=== PATIENT | female | born 1950 | race Caucasian/White ===

== ENCOUNTER 2016-08-09 07:15 | Day surgery (SDC) | payer OTHER ==
[~2016-08-09 07:15] MED LIST: Lactated Ringers 1,000 ML IV SCH; Lidocaine 1%/Sod Bicarbonate in NS 8.4% 1 ML Syringe PRN; Sodium Chloride 0.9% 10 ML Syringe FLUSH PRN
--- NOTE | 2016-08-09 07:49 | PCM.PREANE ---
Preanesthetic Assessment - Anesthesia/Transfusion/Family Hx Anesthesia History: Prior Anesthesia Without Reaction Family History of Anesthesia Reaction: No Transfusion History: No Prior Transfusion(s) Intubation History: Unknown - Review of Systems General: No Symptoms Pulmonary: No Symptoms (quit smoking 1996.) Cardiovascular: No Symptoms Gastrointestinal: Diarrhea (has resolved for past 5 days.) Neurological: No Symptoms Other: Reports: None (off/on lower back pain with lower back surgery fusion noted in 2012) - Physical Assessment NPO Status Date: 08/09/16 NPO Status Time: 03:00 Pulse: 71 O2 Sat by Pulse Oximetry: 96 Respiratory Rate: 16 Blood Pressure: 141/60 Temperature: 36.2 C Height: 1.65 m Weight: 81.647 kg ASA Class: 1 Mental Status: Alert & Oriented x3 Airway Class: Mallampati = 2 Dentition: Reports: Normal Dentition, [place](s), Caries Thyro-Mental Finger Breadths: 3 Mouth Opening Finger Breadths: 3 ROM/Head Extension: Full Lungs: Clear to auscultation, Normal respiratory effort Cardiovascular: Regular Rate, Regular Rhythm - Lab Values: All labs reviewed from June 2016 and within normal limits. - Allergies Allergies/Adverse Reactions: Allergies Allergy/AdvReac Type Severity Reaction Status Date / Time No Known Allergies Allergy Verified 08/06/16 09:46 - Anesthesia Plan Pre-Op Medication Ordered: None - Acknowledgements Anesthesia Type Planned: MAC Pt an Appropriate Candidate for the Planned Anesthesia: Yes Alternatives and Risks of Anesthesia Discussed w Pt/Guardian: Yes Pt/Guardian Understands and Agrees with Anesthesia Plan: Yes PreAnesthesia Questionnaire HEENT History: Reports: None Cardiovascular History: Reports: None Respiratory History: Reports: None Gastrointestinal History: Reports: Chronic Diarrhea Genitourinary History: Reports: None 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: Musculoskeletal History: Reports: None Neurological History: Reports: None Psychiatric History: Reports: None Endocrine/Metabolic History: Reports: None Hematologic History: Reports: None Immunologic History: Reports: None Oncologic (Cancer) History: Reports: None Dermatologic History: Reports: None - Infectious Disease History Infectious Disease History: Reports: None - Past Surgical History Head Surgeries/Procedures: Reports: None HEENT Surgical History: Reports: Adenoidectomy, Tonsillectomy Cardiovascular Surgical History: Reports: Other (See Below) Other Cardiovascular Surgeries/Procedures: Ligation and division and complete stripping, long and short saphenous veins Respiratory Surgical History: Reports: None GI Surgical History: Reports: Appendectomy, Colonoscopy Female Surgical History: Reports: Breast Biopsy, Tubal Ligation Endocrine Surgical History: Reports: None Neurological Surgical History: Reports: None Musculoskeletal Surgical History: Reports: None Oncologic Surgical History: Reports: None Dermatological Surgical History: Reports: None - SUBSTANCE USE Smoking Status *Q: Former Smoker Second Hand Smoke Exposure: No Recreational Drug Use History: No - HOME MEDS Home Medications: Home Meds Aspirin [Halfprin] 81 mg PO DAILY 08/06/16 [History] Biotin 5 mg PO DAILY 08/06/16 [History] Cranberry Conc/Ascorbic Acid [Cranberry Plus Vitamin C Sftgl] 1 each PO DAILY [History] Estradiol [Estrace Vaginal] 1 applic VAG SUWE 08/06/16 [History] L.acidoph,Paracasei, B.lactis [Probiotic] 1 each PO DAILY 08/06/16 [History] Multivitamin [Multivitamins] 1 each PO DAILY 08/06/16 [History] - CURRENT (IN HOUSE) MEDS Current Meds: Current Medications Lactated Ringer's (Ringers, Lactated) 1,000 mls @ 125 mls/hr IV ASDIRECTED BETH Stop: 08/09/16 23:00 Lidocaine/Sodium Bicarbonate (Buffered Lidocaine 1% In Ns 8.4%) 0.25 ml .XX ONETIME PRN PRN Reason: Prior to IV Start Stop: 08/09/16 18:00 Sodium Chloride (Saline Flush) 10 ml FLUSH ASDIRECTED PRN PRN Reason: Keep Vein Open Stop: 08/09/16 18:00
[2016-08-09] MEDS ORDERED: Midazolam 1 MG/ML 2 ML SDV ONE (08:02)
[2016-08-09] MEDS ORDERED: fentaNYL 100 MCG/2 ML SDV ONE (08:02)
[2016-08-09] MEDS ORDERED: Lidocaine 1% 4 ML ONE (08:02)
[2016-08-09] MEDS ORDERED: Propofol 200 MG/20 ML SDV ONE (08:02)
--- NOTE | 2016-08-09 09:08 | PCM.OPNOTE ---
- General Post-Op/Procedure Note Date of Surgery/Procedure: 08/09/16 Operative Procedure(s): colonoscopy with bx and collection of stool Findings: sigmoid diverticulosis Pre Op Diagnosis: chronic diarrhea Post-Op Diagnosis: Same Anesthesia Technique: MAC Primary Surgeon: Duke Bey EBL in mLs: 0 Complications: None Condition: Good
--- NOTE | 2016-08-09 09:08 | PCM48HPAN ---
Post Anesthesia Note - EVALUATION WITHIN 48HRS OF ANESTHETIC Vital Signs in Normal Range: Yes Patient Participated in Evaluation: Yes Respiratory Function Stable: Yes Airway Patent: Yes Cardiovascular Function Stable: Yes Hydration Status Stable: Yes Pain Control Satisfactory: Yes Nausea and Vomiting Control Satisfactory: Yes Mental Status Recovered: Yes
[2016-08-09 09:10] VITALS: BP 110/53
--- NOTE | 2016-08-10 09:43 | OR ---
DATE OF OPERATION: 08/09/2016 SURGEON: Duke Bey MD PREOPERATIVE DIAGNOSIS: Chronic diarrhea. POSTOPERATIVE DIAGNOSIS: Chronic diarrhea. OPERATION PERFORMED: Colonoscopy to cecum with cannulation of the ileum, collection of stool for analysis, and random biopsies of the transverse colon, sigmoid colon, and rectum. FINDINGS: Moderate sigmoid diverticulosis. There are no angiodysplasias, neoplasias, large tumor masses, ulcerations, or hemorrhoids. The ileum was clear of any acute pathology. ANESTHESIA: Procedure done under IV sedation. DESCRIPTION OF PROCEDURE: The patient was taken to the GI room, placed in a supine position, connected to monitoring equipment, given IV sedation, and placed in left lateral position. The perianal area was inspected and was normal. Rectal exam showed good sphincter tone. A Video Olympus colonoscope was introduced into the rectum and threaded up without problem to the cecum, where the appendicular orifice was clearly noted. Prep was excellent throughout the colon. [place] Cleansing score grade A. The scope was cannulated and the ileum was normal. The scope was then slowly withdrawn showing the cecum, ascending colon, transverse colon, descending colon, sigmoid colon, and rectum collecting stool in the process. A random biopsy was taken of the transverse colon, the sigmoid colon, and the rectum. Stool was sent for analysis and the biopsies were sent in separate labeled containers to pathology. The patient tolerated the procedure, sent to recovery room in a stable condition, and will be followed up in the clinic. ESTIMATED BLOOD LOSS: MMODAL /[id number]
== END 2016-08-09 09:38 | disposition home or self-care (01) ==
LOC: JD.SDS 07:15
PROVIDERS: ATTEND Surgery
DX: K52.9 Noninfective gastroenteritis and colitis, unspecified (principal); K57.30 Diverticulosis of large intestine without perforation or abscess without bleeding; Z79.82 Long term (current) use of aspirin; Z87.891 Personal history of nicotine dependence
CPT/HCPCS: 45380; 87046; 87328; 87329; 87493; 88305; 89055; J2250; J3010; J7120; 87427; J2704

== ENCOUNTER 2018-07-05 06:11 | Day surgery (SDC) | payer MEDICARE, BC ==
[~2018-07-05 06:11] MED LIST changes: +Lidocaine 1%/Sod Bicarbonate in NS 8.4% 1 ML Syringe IDERM PRN; -Lidocaine 1%/Sod Bicarbonate in NS 8.4% 1 ML Syringe PRN
[2018-07-05] MEDS ORDERED: Lidocaine 1% 30 ML SDV ONE (06:23)
[2018-07-05] MEDS ORDERED: Triamcinolone Acetonide 40 MG/ML 1 ML MDV ONE (06:24)
--- NOTE | 2018-07-05 06:45 | PCM.PREANE ---
Preanesthetic Assessment - Anesthesia/Transfusion/Family Hx Anesthesia History: Prior Anesthesia Without Reaction Type of Anesthesia Reaction: Excessive Nausea/Vomiting Family History of Anesthesia Reaction: No Transfusion History: No Prior Transfusion(s) Intubation History: Unknown - Review of Systems General: No Symptoms Pulmonary: No Symptoms (Quit smoking in 2001) Cardiovascular: No Symptoms Gastrointestinal: No Symptoms Neurological: No Symptoms (Chronic lower back pain: / surgery in 2013,) Other: Reports: Easy Bleeding, Easy Bruising, Anxiety - Physical Assessment NPO Status Date: 07/04/18 NPO Status Time: 21:30 Pulse: 69 O2 Sat by Pulse Oximetry: 93 Respiratory Rate: 16 Blood Pressure: 133/59 Temperature: 36.2 C Height: 1.65 m Weight: 83.461 kg ASA Class: 2 Mental Status: Alert & Oriented x3 Airway Class: Mallampati = 2 Dentition: Reports: Normal Dentition, [place]ies Thyro-Mental Finger Breadths: 3 Mouth Opening Finger Breadths: 3 Lungs: Clear to Auscultation, Normal Respiratory Effort Cardiovascular: Regular Rate, Regular Rhythm, No Murmurs - Lab Values: Laboratory Last Values MRSA (PCR) Negative 06/28/18 10:48 - Imaging/EKG Impressions: EKG: NSR rate= 67 - Allergies Allergies/Adverse Reactions: Allergies Allergy/AdvReac Type Severity Reaction Status Date / Time No Known Allergies Allergy Verified 07/04/18 12:11 - Anesthesia Plan Pre-Op Medication Ordered: None - Acknowledgements Anesthesia Type Planned: MAC Pt an Appropriate Candidate for the Planned Anesthesia: Yes Alternatives and Risks of Anesthesia Discussed w Pt/Guardian: Yes Pt/Guardian Understands and Agrees with Anesthesia Plan: Yes PreAnesthesia Questionnaire HEENT History: Reports: None Cardiovascular History: Reports: High Cholesterol Respiratory History: Reports: PE Gastrointestinal History: Reports: Chronic Diarrhea, Irritable Bowel Syndrome Genitourinary History: Reports: None, Urinary Incontinence, UTI, Recurrent, Other (See Below) Other Genitourinary History: cystic hematuria, dysuria 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: , Other (See Below) Other OB/BYN History: vaginal atrophy, hot flashes, , breast lumpectomy, tubal Musculoskeletal History: Reports: None, Back Pain, Chronic Neurological History: Reports: None Psychiatric History: Reports: Anxiety Endocrine/Metabolic History: Reports: None, Other (See Below) Other Endocrine/Metabolic History: hair loss Hematologic History: Reports: None Immunologic History: Reports: None Oncologic (Cancer) History: Reports: None Dermatologic History: Reports: Other (See Below) Other Dermatologic History: hair loss - Infectious Disease History Infectious Disease History: Reports: None - Past Surgical History Head Surgeries/Procedures: Reports: None HEENT Surgical History: Reports: Adenoidectomy, Tonsillectomy Cardiovascular Surgical History: Reports: Other (See Below) Other Cardiovascular Surgeries/Procedures: Ligation and division and complete stripping, long and short saphenous veins Respiratory Surgical History: Reports: None GI Surgical History: Reports: Appendectomy, Colonoscopy Female Surgical History: Reports: Breast Biopsy, Tubal Ligation Male Surgical History: Reports: None Endocrine Surgical History: Reports: None Neurological Surgical History: Reports: Other (See Below) Other Neurological Surgeries/Procedures: back surgery with hardware Musculoskeletal Surgical History: Reports: None Oncologic Surgical History: Reports: None Dermatological Surgical History: Reports: None - SUBSTANCE USE Smoking Status *Q: Former Smoker Recreational Drug Use History: No - HOME MEDS Home Medications: Home Meds Cranberry Conc/Ascorbic Acid [Cranberry Plus Vitamin C Sftgl] 1 each PO DAILY [History] Estradiol [Estrace 0.01% Vaginal Crm] 1 applic VAG SUWE 08/06/16 [History] L.acidoph,Paracasei, B.lactis [Probiotic] 1 each PO DAILY 08/06/16 [History] Colestipol [Colestipol HCl] 2 mg PO BEDTIME 11/23/17 [History] Biotin 1 mg PO DAILY 07/04/18 [History] Escitalopram Oxalate [Lexapro] 20 mg PO DAILY 07/04/18 [History] LORazepam 0.5 - 1 mg PO BID PRN 07/04/18 [History] - CURRENT (IN HOUSE) MEDS Current Meds: Current Medications Lactated Ringer's (Ringers, Lactated) 1,000 mls @ 125 mls/hr IV ASDIRECTED BETH Stop: 07/05/18 23:00 Lidocaine/Sodium Bicarbonate (Buffered Lidocaine 1% In Ns 8.4%) 0.25 ml IDERM ONETIME PRN PRN Reason: Prior to IV Start Stop: 07/05/18 18:00 Sodium Chloride (Saline Flush) 10 ml FLUSH ASDIRECTED PRN PRN Reason: Keep Vein Open Stop: 07/05/18 18:00 Discontinued Medications Bupivacaine HCl (Marcaine 0.25%) Confirm Administered Dose 30 ml .ROUTE .STK- MED ONE Stop: 07/05/18 06:25 Lidocaine HCl (Xylocaine-Mpf 1%) Confirm Administered Dose 30 ml .ROUTE .STK- MED ONE Stop: 07/05/18 06:24 Triamcinolone Acetonide (Kenalog-40) Confirm Administered Dose 40 mg .ROUTE .STK -MED ONE Stop: 07/05/18 06:25
[2018-07-05] MEDS ORDERED: Propofol 200 MG/20 ML SDV ONE (07:02)
[2018-07-05] MEDS ORDERED: Ondansetron 4 MG/2 ML SDV ONE (07:02)
[2018-07-05] MEDS ORDERED: Lidocaine 1% 6 ML ONE (07:02)
[2018-07-05] MEDS ORDERED: Midazolam 1 MG/ML 2 ML SDV ONE (07:03)
[2018-07-05] MEDS ORDERED: fentaNYL 100 MCG/2 ML SDV ONE (07:03)
[2018-07-05] MEDS ORDERED: Ondansetron 4 MG/2 ML SDV IVPUSH PRN (07:20)
[2018-07-05] MEDS ORDERED: HYDROmorphone 0.5 MG/0.5 ML Syringe IVPUSH PRN (07:20)
[2018-07-05] MEDS ORDERED: diphenhydrAMINE 50 MG/ML SDV IVPUSH PRN (07:20)
[2018-07-05] MEDS: Bupivacaine 0.25% 30 ML SDV ONE ×2 (07:23→07:33)
[2018-07-05 08:46] VITALS: BP 107/59
--- NOTE | 2018-07-05 14:44 | PCM.OPNOTE ---
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
--- NOTE | 2018-07-05 15:04 | OR ---
DATE OF OPERATION: 07/05/2018 SURGEON: Manuel Garcia MD OPERATION PERFORMED: Left carpal tunnel release with right index finger MCP joint injection. 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 ANESTHESIA: Local MAC. ANESTHESIA PROVIDER: Jillian Walls CRNA. SIZER HAND: Pavithra Lau PA-C. ESTIMATED BLOOD LOSS: Less than 5 mL. COMPLICATIONS: None. CONDITION: Stable. DESCRIPTION OF PROCEDURE: The patient was identified in the preop holding area. Proper site was marked and identified by the surgeon. The patient was taken back to the operating theater where after adequate anesthesia, the patient's left upper extremity was sterilely prepped and draped in the usual sterile fashion. OR time-out was performed. The patient did not receive antibiotics and it is not indicated for soft tissue hand procedure. At this time, the left upper extremity was exsanguinated and an Esmarch was used as a tourniquet on the forearm. At this time, using 1% lidocaine without epinephrine and 0.25% Marcaine without epinephrine, the palmar cutaneous branch of the median nerve was anesthetized and then the incisional site was anesthetized using Barnes cardinal line and ulnar border of the fourth digit as reference. Once this had set up, an incision was made. Blunt dissection was taken down to the palmar cutaneous fascia. Palmar cutaneous fascia was incised with a [place] blade. At this time, the transverse carpal ligament was identified. A small rent was made in the transverse carpal ligament with a [place] blade under direct visualization. Resection of the transverse carpal ligament was done distally using tenotomy scissors making sure to stop short of the palmar arch. At this time, attention was turned proximally after it was found to be adequately released. Using the tenotomy scissors keeping the tips ulnar to protect the palmar cutaneous branch of the median nerve, the superficial forearm fascia as well as the transverse carpal ligament were resected proximally. It was found to be adequate release both proximally and distally. At this time, adequate saline was irrigated through the wound. 4-0 nylon sutures were used closure of the skin. The patient was placed in a sterile soft dressing and sent to PACU in stable condition. After this was completed, under sterile technique, 0.5 mL 40 mg Kenalog and 0.5 mL of 0.25% Marcaine were injected to the right index finger MCP joint. The patient tolerated both procedures well. LOTUS /[id number]
== END 2018-07-05 08:45 | disposition home or self-care (01) ==
LOC: JD.SDS 06:11
PROVIDERS: ATTEND Orthopaedic Surgery
DX: G56.02 Carpal tunnel syndrome, left upper limb (principal); M19.041 Primary osteoarthritis, right hand; F41.9 Anxiety disorder, unspecified; K58.9 Irritable bowel syndrome, unspecified; Z87.891 Personal history of nicotine dependence; Z79.899 Other long term (current) drug therapy
CPT/HCPCS: 20600; 64721; 87641; J2001; J2250; J2405; J2704; J3010; J3301; J3490; J7120; 01810

== ENCOUNTER → 2020-07-28 | Day surgery (SDC) | payer MEDICARE, BC ==
--- NOTE | 2020-07-07 10:26 | PCM.EKG ---
#1 Interpretation EKG Date: 07/07/20 Time: 08:43 Rhythm: NSR Rate (Beats/Min): 76 [place]: Normal P-Wave: Enlarged (Left atrial hypertrophy pattern) QRS: Other (Decreased voltage limb leads) ST-T: Other (Nonspecific T wave flattening V2) QT: Normal EKG Interpretation Comments: Borderline ECG
[~2020-07-28] MED LIST changes: +Acetaminophen 325 MG Tab PO SCH; +Bupivacaine 0.25% 10 ML SDV ONE; +Cyclobenzaprine 10 MG Tab PO PRN; +EPINEPHrine 1 MG/ML SDV ONE; +HYDROmorphone 0.5 MG/0.5 ML Syringe IVPUSH STA; +Ketorolac 30 MG/ML SDV ONE; +Lactated Ringers 1,000 ML ONE; +Lidocaine 1% 4 ML ONE; +Midazolam 1 MG/ML 2 ML SDV ONE; +Ondansetron 4 MG/2 ML SDV IVPUSH PRN; +Ondansetron 4 MG/2 ML SDV ONE; +Pregabalin 25 MG Cap PO SCH; +Propofol 200 MG/20 ML SDV ONE; +Ropivacaine 0.5% 5 MG/ML 30 ML SDV ONE; +ceFAZolin 1 GM Vial ONE; +diphenhydrAMINE 50 MG/ML SDV IVPUSH PRN; +ePHEDrine 50 MG/ML SDV IVPUSH PRN; +ePHEDrine 50 MG/ML SDV ONE; +fentaNYL 100 MCG/2 ML SDV ONE; +oxyCODONE 5 MG Tab PO PRN; +oxyCODONE ER 10 MG TAB.ER PO SCH
--- NOTE | 2020-07-28 08:13 | PCM.PREANE ---
Preanesthetic Assessment - Anesthesia/Transfusion/Family Hx Anesthesia History: Prior Anesthesia Reaction (MELVINA) Family History of Anesthesia Reaction: No Transfusion History: No Prior Transfusion(s) Intubation History: Unknown - Review of Systems General: No Symptoms Pulmonary: No Symptoms Cardiovascular: No Symptoms Gastrointestinal: No Symptoms Neurological: No Symptoms Other: Reports: None - Physical Assessment NPO Status Date: 07/27/20 NPO Status Time: 22:00 ASA Class: 2 Mental Status: Alert & Oriented x3 Airway Class: Mallampati = 2 Dentition: Reports: Normal Dentition Thyro-Mental Finger Breadths: 3 Mouth Opening Finger Breadths: 3 ROM/Head Extension: Full Lungs: Clear to Auscultation, Normal Respiratory Effort Cardiovascular: Regular Rate, Regular Rhythm - Lab Values: Laboratory Last Values MRSA (PCR) Cancelled 07/08/20 16:05 - Allergies Allergies/Adverse Reactions: Allergies Allergy/AdvReac Type Severity Reaction Status Date / Time No Known Allergies Allergy Verified 07/25/20 14:27 - Acknowledgements Anesthesia Type Planned: Spinal Pt an Appropriate Candidate for the Planned Anesthesia: Yes Alternatives and Risks of Anesthesia Discussed w Pt/Guardian: Yes Pt/Guardian Understands and Agrees with Anesthesia Plan: Yes PreAnesthesia Questionnaire HEENT History: Reports: None Cardiovascular History: Reports: High Cholesterol Respiratory History: Reports: PE Gastrointestinal History: Reports: Chronic Diarrhea, GERD, Irritable Bowel Syndrome Genitourinary History: Reports: Urinary Incontinence, UTI, Recurrent, Other (See Below) Other Genitourinary History: cystic hematuria, dysuria 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: , Other (See Below) Other OB/BYN History: vaginal atrophy, hot flashes, , breast lumpectomy, tubal Musculoskeletal History: Reports: None, Back Pain, Chronic Neurological History: Reports: None Psychiatric History: Reports: Anxiety Endocrine/Metabolic History: Reports: None Other Endocrine/Metabolic History: hair loss Hematologic History: Reports: None Immunologic History: Reports: None Oncologic (Cancer) History: Reports: None Dermatologic History: Reports: Other (See Below) Other Dermatologic History: hair loss - Infectious Disease History Infectious Disease History: Reports: None - Past Surgical History Head Surgeries/Procedures: Reports: None HEENT Surgical History: Reports: Adenoidectomy, Cataract Surgery, Tonsillectomy Cardiovascular Surgical History: Reports: Varicose, Other (See Below) Other Cardiovascular Surgeries/Procedures: Ligation and division and complete stripping, long and short saphenous veins Respiratory Surgical History: Reports: None GI Surgical History: Reports: Appendectomy, Colonoscopy Female Surgical History: Reports: Breast Biopsy, Tubal Ligation Male Surgical History: Reports: None Endocrine Surgical History: Reports: None Neurological Surgical History: Reports: Other (See Below) Other Neurological Surgeries/Procedures: back surgery with hardware Musculoskeletal Surgical History: Reports: None Oncologic Surgical History: Reports: None Dermatological Surgical History: Reports: None - SUBSTANCE USE Tobacco Use Status *Q: Former Tobacco User Recreational Drug Use History: No - HOME MEDS Home Medications: Home Meds Cranberry Conc/Ascorbic Acid [Cranberry Plus Vitamin C Sftgl] 1 each PO DAILY 08/06/16 [History] L.acidoph,Paracasei, B.lactis [Probiotic] 1 each PO DAILY 08/06/16 [History] estradioL [Estrace 0.01% Vaginal Crm] 1 applic VAG SUWE 08/06/16 [History] Colestipol [Colestipol HCl] 1 gm PO BEDTIME 11/23/17 [History] Escitalopram Oxalate [Lexapro] 20 mg PO DAILY 07/04/18 [History] Cholecalciferol (Vitamin D3) [Vitamin D3] 5,000 unit PO DAILY 07/25/20 [History] Cyclobenzaprine [Flexeril] 10 mg PO BID PRN #20 tab 07/28/20 [Rx] Rivaroxaban [Xarelto] 10 mg PO DAILY #40 tab 07/28/20 [Rx] oxyCODONE 5 - 10 mg PO Q4H PRN #40 tab 07/28/20 [Rx] - CURRENT (IN HOUSE) MEDS Current Meds: Current Medications Acetaminophen (Acetaminophen 325 Mg Tab) 975 mg PO ONETIME BETH Stop: 07/28/20 16:00 Morphine Sulfate 8 mg/Epinephrine HCl 0.3 mg/Cefuroxime Sodium 750 mg/Ketorolac Tromethamine 30 mg/Sodium Chloride 7.9 ml 0 mg .XX ASDIRECTED PRN PRN Reason: Pain Stop: 07/28/20 13:00 Lactated Ringer's (Ringers, Lactated) 1,000 mls @ 125 mls/hr IV ASDIRECTED BETH Stop: 07/28/20 23:00 Lidocaine/Sodium Bicarbonate (Lidocaine 1%/Sod Bicarbonate In Ns 8.4% 1 Ml Syringe) 0.25 ml IDERM ONETIME PRN PRN Reason: Prior to IV Start Stop: 07/28/20 18:00 Oxycodone HCl (Oxycodone Er 10 Mg Tab.Er) 10 mg PO ONETIME BETH Stop: 07/28/20 16:00 Pregabalin (Pregabalin 25 Mg Cap) 50 mg PO ONETIME BETH Stop: 07/28/20 16:00 Sodium Chloride (Sodium Chloride 0.9% 10 Ml Syringe) 10 ml FLUSH ASDIRECTED PRN PRN Reason: Keep Vein Open Stop: 07/28/20 18:00 Discontinued Medications Cefazolin Sodium (Cefazolin 1 Gm Vial) Confirm Administered Dose 2 gm .ROUTE .STK-MED ONE Stop: 07/28/20 07:13 Epinephrine HCl (Epinephrine 1 Mg/Ml Sdv) Confirm Administered Dose 1 mg .ROUTE .STK-MED ONE Stop: 07/28/20 07:29 Lidocaine HCl (Xylocaine-Mpf 1%) Confirm Administered Dose 4 mls @ as directed .ROUTE .STK-MED ONE Stop: 07/28/20 06:55 Midazolam HCl (Midazolam 1 Mg/Ml 2 Ml Sdv) Confirm Administered Dose 2 mg .ROUTE .STK-MED ONE Stop: 07/28/20 06:55 Propofol (Propofol 200 Mg/20 Ml Sdv) Confirm Administered Dose 200 mg .ROUTE .STK-MED ONE Stop: 07/28/20 06:55 Ropivacaine (Ropivacaine 0.5% 5 Mg/Ml 30 Ml Sdv) Confirm Administered Dose 30 ml .ROUTE .STK-MED ONE Stop: 07/28/20 07:29
[2020-07-28] MEDS: Morphine 8 MG, EPINEPHrine 0.3 MG, Cefuroxime 750 MG, Ketorolac 30 MG, Sodium Chloride ... PRN ×10 (10:55→11:28)
[2020-07-28] MEDS: Vancomycin 1 GM SDV ONE ×2 (10:56→11:34)
--- NOTE | 2020-07-28 11:59 | PCM.POSTAN ---
POST ANESTHESIA ASSESSMENT - MENTAL STATUS Mental Status: Alert, Oriented - VITAL SIGNS Vital Signs: Last Vital Signs Temp 36.6 C 07/28/20 08:05 Pulse 80 07/28/20 08:05 Resp 17 07/28/20 08:05 BP 125/56 L 07/28/20 08:05 Pulse Ox 98 07/28/20 08:05 - RESPIRATORY Respiratory Status: Respiratory Rate WNL, Airway Patent, O2 Saturation Stable - CARDIOVASCULAR CV Status: Pulse Rate WNL, Blood Pressure Stable - GASTROINTESTINAL GI Status: No Symptoms - PAIN Pain Score: 0 - POST OP HYDRATION Hydration Status: Adequate & Stable
--- NOTE | 2020-07-28 12:16 | PCM.SN.2 ---
- Free Text/Narrative Note: Right selective femoral nerve block at the adductor canal for post-procedure pain control under US guidance requested by Dr. Garcia. Date: 07/28/2020 Time Out: 1202 Start: 1203 End: 1206 Chart reviewed. Consent signed. Questions answered. Appropriate monitors applied. Time out performed. Right mid-shaft femur identified with ultrasound, scanning medially of femur, the femoral artery in the adductor canal visualized, and the femoral nerve located laterally to the artery. The skin was prepped lateral to the ultrasound probe with chlorahexadine times two. The 21ga 4 insulated block needle was inserted under direct ultrasound guidance into the adductor canal. 25mL of 0.5% ropivacaine with 1:200,000 epinephrine was injected circumferentially around the nerve with intermittent negative aspiration noted. Patient tolerated the procedure well. Sterile technique noted along with sterile gloves, mask, and sterile probe cover. See picture on progress note and vital signs on nurses notes. Block completed in PACU. Zeina Davis CRNA
[2020-07-28] MEDS: fentaNYL 100 MCG/2 ML SDV IVPUSH PRN ×2 (12:27→12:38)
--- NOTE | 2020-07-28 12:39 | CR ---
Right knee: AP and crosstable lateral views of the right knee were obtained. Comparison: Prior right knee CT study of 07/08/20. Findings: Knee prosthesis is seen which includes the patella. Components are aligned. Soft tissue surgical clips are noted. Soft tissue air is noted. Underlying bony structures are intact. Impression: 1. Satisfactory postop radiographic appearance of recently placed right knee prosthesis. 2. Soft tissue surgical clips are incidentally noted. Diagnostic code #2
--- NOTE | 2020-07-28 13:02 | PCM48HPAN ---
Post Anesthesia Note - EVALUATION WITHIN 48HRS OF ANESTHETIC Vital Signs in Normal Range: Yes Patient Participated in Evaluation: Yes Respiratory Function Stable: Yes Airway Patent: Yes Cardiovascular Function Stable: Yes Hydration Status Stable: Yes Pain Control Satisfactory: Yes Nausea and Vomiting Control Satisfactory: Yes Mental Status Recovered: Yes Vital Signs: Last Vital Signs Temp 36.3 C 07/28/20 11:54 Pulse 80 07/28/20 08:05 Resp 16 07/28/20 13:00 BP 116/58 L 07/28/20 13:00 Pulse Ox 94 L 07/28/20 13:00
[2020-07-29 10:48] VITALS: BP 111/68; PULSE 88
--- NOTE | 2020-08-11 08:32 | PCM.OPNOTE ---
- General Post-Op/Procedure Note Date of Surgery/Procedure: 07/28/20 Operative Procedure(s): right total knee arhtroplasty with garrett robotic assist Pre Op Diagnosis: right knee osteoarthrosis Post-Op Diagnosis: Same Anesthesia Technique: Local, MAC, Spinal Primary Surgeon: Manuel Garcia Anesthesia Provider: Zeina Davis Cone Classifier Tender: Pavithra Lau Cone Classifier Tender: Tatyana Gramajo EBL in mLs: 5 Complications: None Condition: Good Free Text/Narrative:: / 9mm 32x10 cemented patella
--- NOTE | 2020-08-11 09:10 | OR ---
DATE OF OPERATION: 07/28/2020 SURGEON: Manuel Garcia MD OPERATION PERFORMED: Right total knee arthroplasty with Ritesh robotic assist. PREOPERATIVE DIAGNOSIS: Right knee osteoarthrosis. POSTOPERATIVE DIAGNOSIS: Right knee osteoarthrosis. ANESTHESIA: Local MAC with spinal. ANESTHESIA PROVIDER: Zeina Davis CRNA. ASSISTANTS: Pavithra Lau PA-C and Tatyana Gramajo LPN. ESTIMATED BLOOD LOSS: 5 mL. COMPLICATIONS: None. CONDITION: Stable. IMPLANT: 1. [place] size 4 press-fit CR femur. 2. Clarisa size 4 press-fit tibial baseplate. 3. Clarisa size 4 9 mm CS polyethylene insert. 4. [place] size 32 x 10 mm cemented asymmetric patella. DESCRIPTION OF PROCEDURE: The patient was identified in the preoperative holding area. Proper site was marked and identified by the surgeon. The patient was taken back to the operating theater where after adequate anesthesia, the patient had a nonsterile tourniquet applied to the right lower extremity. Right lower extremity was then sterilely prepped and draped in the usual sterile fashion. OR time-out was performed. The patient received 2 g IV Ancef. Leg kinney was then applied. Right lower extremity was exsanguinated and tourniquet insufflated to 250 mmHg. Standard anterior incision was undertaken and a medial parapatellar arthrotomy was created. Deep fibers of the MCL were raised and anterior fat pad was resected. Attention was turned to the patella. Patella measured a 24, resected to a 14 for 32 x 10 mm patella. Drill holes were then drilled and found to be adequate. The patient did have a slight soft bone on the patella with this, so we decided to cemented at that time. Attention was turned to the femur and the tibia. Two 4.0 pins were placed on both the femur and the tibia enter incisionally in the femur and distal to the tibial tubercle and the tibia, Clarisa Ritesh robotic array as well as checkpoints were then applied. At this time, hip center rotation was identified. Medial and lateral malleolus were marked. 40 points were then obtained on both the femur and the tibia for the [place] Ritesh robotic plan. The patient's knee was brought to full extension. Varus valgus stresses were applied as well as 90 degrees of flexion. At this time, [place] Ritesh robotic arm with straight saw blade was brought in and the tibial cut was completed as well as the posterior femoral cut. The anterior femoral cut and the anterior chamfer cut. Saw blade was then switched and the distal femoral cut and posterior chamfer cut was then completed and found to be adequate. Medial and lateral meniscus were resected. Posterior osteophytes were removed. Trial implants were then placed. A size 4 trial placed was placed on the tibia and size 4 trial was placed on the femur, 9 mm poly showed full flexion. No signs of liftoff and no varus-valgus instability. At this time, the femoral drill holes were drilled. The tibia was stamped and drilled in the proper rotation. Trial implants were all removed. At this time, the size 4 tibial baseplate was impacted into place. Size 4 femur was impacted into place and the 9 mm CS polyethylene insert was impacted in place. The patient's knee was brought to full extension. The 32 x 10 mm patella was cemented into place. At this time, the [employer] robotic arrays checkpoints and pins were all removed. 1 L pulse lavage irrigation with Ancef was irrigated through the knee along with 400 mL IrriSept irrigation. Periarticular injection was completed. Topical tranexamic acid and vancomycin powder were applied. A #2 barbed suture was used for closure of the medial parapatellar arthrotomy. 2-0 Vicryl as well as Stratafix were used for subcutaneous closure, and Prineo was used for skin closure. The patient had a sterile soft dressing applied and sent to the PACU in stable condition. LOTUS /[id number]
== END | disposition home or self-care (01) ==
LOC: JD.SDS 07:57
PROVIDERS: ATTEND Orthopaedic Surgery
DX: M17.11 Unilateral primary osteoarthritis, right knee (principal); G89.29 Other chronic pain; G89.18 Other acute postprocedural pain; E78.00 Pure hypercholesterolemia, unspecified; Z01.812 Encounter for preprocedural laboratory examination; Z20.822 Contact with and (suspected) exposure to COVID-19; Z79.899 Other long term (current) drug therapy; Z90.49 Acquired absence of other specified parts of digestive tract; Z98.890 Other specified postprocedural states; Z87.891 Personal history of nicotine dependence
CPT/HCPCS: 27447; 73560; 97110; 97116; 97161; 97165; A9270; C1713; C1776; J0171; J0690; J0697; J1170; J1885; J2250; J2270; J2405; J2704; J2795; J3010; J3370; J7120; U0002; 01402; 64450; 87641; J3490

== ENCOUNTER 2020-08-03 17:48 | Emergency (ER) | payer MEDICARE, BC ==
[2020-08-03 18:05] VITALS: BP 181/78; PULSE 93
--- NOTE | 2020-08-03 20:02 | EDM.PDOC ---
<Juliano Menjivar - Last Filed: 08/03/20 20:09> ED HPI GENERAL MEDICAL PROBLEM - General Chief Complaint: Lower Extremity Injury/Pain Stated Complaint: SWOLLEN RT LEG Time Seen by Provider: 08/03/20 18:02 Source of Information: Reports: Patient, RN Notes Reviewed - History of Present Illness INITIAL COMMENTS - FREE TEXT/NARRATIVE: 70 yr old female comes in with swollen R thigh, knee and distal leg S/P total knee replacement last Tuesday 6 days ago. She states surgery went well, home that evening, walking, rehabing OK until onset of increasing swelling, bruising, pain 2 days ago. No fever or chills. No drainage, warmth or erythema. Right Knee Pain Score (Numeric/FACES): 7 - Related Data Allergies Allergy/AdvReac Type Severity Reaction Status Date / Time No Known Allergies Allergy Verified 08/03/20 18:06 Home Meds: Home Meds Cholecalciferol (Vitamin D3) [Vitamin D3] 5,000 unit PO DAILY 07/25/20 [History] Cyclobenzaprine [Flexeril] 10 mg PO BID PRN #20 tab 07/28/20 [Rx] Rivaroxaban [Xarelto] 10 mg PO DAILY #40 tab 07/28/20 [Rx] oxyCODONE 5 - 10 mg PO Q4H PRN #40 tab 07/28/20 [Rx] Past Medical History HEENT History: Reports: None Cardiovascular History: Reports: High Cholesterol Respiratory History: Reports: PE Gastrointestinal History: Reports: Chronic Diarrhea, GERD, Irritable Bowel Syndrome Genitourinary History: Reports: Urinary Incontinence, UTI, Recurrent, Other (See Below) Other Genitourinary History: cystic hematuria, dysuria 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 History: Reports: , Other (See Below) Other 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 INSERTER History: vaginal atrophy, hot flashes, , breast lumpectomy, tubal Musculoskeletal History: Reports: None, Back Pain, Chronic, Other (See Below) Other Musculoskeletal History: r knee replacement Neurological History: Reports: None Psychiatric History: Reports: Anxiety Endocrine/Metabolic History: Reports: None Other Endocrine/Metabolic History: hair loss Hematologic History: Reports: None Immunologic History: Reports: None Oncologic (Cancer) History: Reports: None Dermatologic History: Reports: Other (See Below) Other Dermatologic History: hair loss - Infectious Disease History Infectious Disease History: Reports: None - Past Surgical History Head Surgeries/Procedures: Reports: None HEENT Surgical History: Reports: Adenoidectomy, Cataract Surgery, Tonsillectomy Cardiovascular Surgical History: Reports: Varicose, Other (See Below) Other Cardiovascular Surgeries/Procedures: Ligation and division and complete stripping, long and short saphenous veins Respiratory Surgical History: Reports: None GI Surgical History: Reports: Appendectomy, Colonoscopy Female Surgical History: Reports: Breast Biopsy, Tubal Ligation Endocrine Surgical History: Reports: None Neurological Surgical History: Reports: Other (See Below) Other Neurological Surgeries/Procedures: back surgery with hardware Musculoskeletal Surgical History: Reports: None Oncologic Surgical History: Reports: None Dermatological Surgical History: Reports: None Social & Family History - Tobacco Use Tobacco Use Status *Q: Never Tobacco User Second Hand Smoke Exposure: No - Caffeine Use Caffeine Use: Reports: Coffee, Soda - Recreational Drug Use Recreational Drug Use: No Review of Systems - Review of Systems Review Of Systems: See Below Constitutional: Denies: Chills, Fever Mouth/Throat: Reports: No Symptoms Respiratory: Denies: Shortness of Breath Cardiovascular: Denies: Chest Pain, Palpitations GI/Abdominal: Denies: Abdominal Pain, Nausea, Vomiting Musculoskeletal: Reports: Leg Pain (R distal thigh, knee and R lower leg), Joint Pain (R knee) Skin: Reports: Bruising (has developed extensive bruising of medial thigh, knee and proximal leg), Other (swelling RLE, thigh, knee, lower leg) Neurological: Denies: Numbness, Tingling ED EXAM, GENERAL - Physical Exam Exam: See Below General Appearance: Alert, No Apparent Distress Head: Atraumatic Neck: Supple Respiratory/Chest: No Respiratory Distress, Lungs Clear, Normal Breath Sounds Cardiovascular: Regular Rate, Rhythm Extremities: Joint Swelling (R knee, thigh and lower leg). No: Increased Warmth, Redness Neurological: Alert, Oriented, No Motor/Sensory Deficits Skin Exam: Warm, Dry, Ecchymosis (moderate bruising of distal medial thigh, knee, lower leg clear down to ankle). No: Erythema Course - Re-Assessments/Exams Free Text/Narrative Re-Assessment/Exam: 08/03/20 20:03 Pt afebrile. WBC 6,900. CRP 6.1. 08/03/20 20:09. Well after change of shift. Still awaiting US report. Have discussed sx and findings with KURT Mora. Will transfer care to her at this time. Exam as noted shows a lot of bruising medial thigh, knee and lower leg clear down to her ankle. Suspect ruptured hematoma and dispersion of blood in the tissue the underlying reason for current sx and findings. Departure - Departure Disposition: Home, Self-Care 01 Clinical Impression: Postoperative pain of right knee - Discharge Information Instructions: Pain Medicine Instructions, [id number] Referrals: Lynne Pimentel NP [Primary Care Provider] - Forms: ED Department Discharge Additional Instructions: You were seen in the emergency department today with complaints of increased swelling and bruising to your right leg after having a right total knee replacement 7 days ago. An ultrasound was completed to rule out blood clot in your leg. There is no blood clot. Recommend that you go home rest and elevate as much as possible. You may ice the right knee 30 minutes at a time every 3 hours while awake. I have sent a prescription for Percocet. You can take 1 tab every 6 hours as needed for pain. Keep in mind that this is a narcotic pain medication and you should not be driving or operating heavy machinery while taking it. Also be aware that if you are taking it quite frequently it will likely make you constipated. Sepsis Event Note (ED) - Evaluation Sepsis Screening Result: No Definite Risk <Liban Macias - Last Filed: 08/03/20 20:39> Course - Vital Signs Last Recorded V/S: Last Vital Signs Temp 97.1 F 08/03/20 18:05 Pulse 93 08/03/20 18:05 Resp 17 08/03/20 18:05 BP 181/78 H 08/03/20 18:05 Pulse Ox 99 08/03/20 18:05 - Orders/Labs/Meds Labs: Laboratory Tests 08/03/20 08/03/20 Range/Units 18:40 18:40 WBC 6.89 (3.98-10.04) K/mm3 RBC 3.60 L (3.98-5.22) M/mm3 Hgb 11.2 D (11.2-15.7) gm/dl Hct 35.0 (34.1-44.9) % MCV 97.2 H (79.4-94.8) fl MCH 31.1 (25.6-32.2) pg MCHC 32.0 L (32.2-35.5) g/dl RDW Std Deviation 47.0 H (36.4-46.3) fL Plt Count 390 H D (182-369) K/mm3 MPV 9.0 L (9.4-12.3) fl Neut % (Auto) 56.6 (34.0-71.1) % Lymph % (Auto) 33.2 (19.3-51.7) % Pratt % (Auto) 8.9 (4.7-12.5) % Eos % (Auto) 0.7 (0.7-5.8) Baso % (Auto) 0.3 (0.1-1.2) % Neut # (Auto) 3.90 (1.56-6.13) K/mm3 Lymph # (Auto) 2.29 (1.18-3.74) K/mm3 Pratt # (Auto) 0.61 H (0.24-0.36) K/mm3 Eos # (Auto) 0.05 (0.04-0.36) K/mm3 Baso # (Auto) 0.02 (0.01-0.08) K/mm3 C-Reactive Protein 6.1 H* (<1.0) mg/dL - Re-Assessments/Exams Free Text/Narrative Re-Assessment/Exam: 08/03/20 20:[address] Menjivar. Radiologist impression right lower extremity deep venous ultrasound: 1. No evidence of deep venous thrombosis is seen within the right lower extremity or within the left common femoral vein. Patient will be discharged home she states she has an appointment with Dr. Garcia on Tuesday. She has however requested pain medication. I will send her with a prescription for 10 Percocet. Departure - Departure Time of Disposition: 20:36 Condition: Good Sepsis Event Note (ED) - Focused Exam Vital Signs: Vital Signs Temp Pulse Resp BP Pulse Ox 08/03/20 18:05 97.1 F 93 17 181/78 H 99
--- NOTE | 2020-08-03 20:27 | US ---
Right lower extremity deep venous ultrasound: Duplex and color Doppler evaluation was obtained of the right common femoral, proximal greater saphenous, superficial femoral, popliteal, posterior tibial and peroneal veins. Left common femoral vein was also evaluated. Comparison: No prior venous imaging is available. Findings: Normal phasic flow, augmentation and compression is seen. Impression: 1. No evidence of deep venous thrombosis is seen within the right lower extremity or within the left common femoral vein. Diagnostic code #1
== END 2020-08-03 20:52 | disposition home or self-care (01) ==
LOC: JD.ED 17:48
DX: G89.18 Other acute postprocedural pain (principal); M25.561 Pain in right knee; Z86.711 Personal history of pulmonary embolism; Z79.01 Long term (current) use of anticoagulants
CPT/HCPCS: 36415; 85025; 86140; 93971-26-RT; 93971-RT; 99283; 99284-25